=== PATIENT | male | born 1945 | race Caucasian/White ===

== ENCOUNTER 2023-10-24 06:14 | Observation (INO) ==
--- NOTE | 2023-09-12 13:04 | PAT Medication Instructions ---
Medication Instructions Date of Service September 12, 2023 Home Medications colchicine 0.6 mg capsule 0.6 mg PO DAILY enzalutamide 40 mg capsule (Xtandi) 160 mg PO DAILY furosemide 40 mg tablet 40 mg PO DAILY PRN Edema gabapentin 100 mg capsule 100 mg PO TID potassium 99 mg tablet 99 mg PO DAILY tamsulosin 0.4 mg capsule 0.8 mg PO DAILY warfarin 5 mg tablet 5 mg PO UD ASK your prescriber and surgeon enzalutamide 40 mg capsule (Xtandi) 160 mg PO DAILY warfarin 5 mg tablet 5 mg PO UD STOP taking 48 hours before surgery colchicine 0.6 mg capsule 0.6 mg PO DAILY DO NOT take the morning of surgery furosemide 40 mg tablet 40 mg PO DAILY PRN Edema potassium 99 mg tablet 99 mg PO DAILY Take morning of surgery With a small sip of water, OTHERWISE NOTHING TO EAT OR DRINK AFTER MIDNIGHT: gabapentin 100 mg capsule 100 mg PO TID tamsulosin 0.4 mg capsule 0.8 mg PO DAILY Take evening before surgery furosemide 40 mg tablet 40 mg PO DAILY PRN Edema (if needed) gabapentin 100 mg capsule 100 mg PO TID Other Notes If you have any questions please call us at [phone] or [phone] or [phone] or [phone]
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
[2023-10-24] MEDS ORDERED: ROPIVACAINE 0.5% 5 MG/ML 30 ML VIAL ONE (06:30)
[2023-10-24] MEDS ORDERED: BUPIVACAINE 0.5 % 5 MG/1 ML PF 10ML VIAL ONE (06:30)
[2023-10-24] MEDS ORDERED: LIDOCAINE 2% 2 ML VIAL/AMP(20MG/ML) INFIL ONE (07:24)
[2023-10-24] MEDS ORDERED: MIDAZOLAM HCL 1 MG/ML 2ML VIAL ONE (07:24)
[2023-10-24] MEDS ORDERED: fentaNYL citrate PF 100 MCG/2 ML VIAL ONE (07:24)
[2023-10-24] MEDS ORDERED: PROPOFOL IV EMULSION 10 MG/ML 20 ML VIAL IV ONE ×3 (07:24→10:10)
[2023-10-24 07:56] LABS: Partial Thromboplastin Time 27 Seconds (21-31); Prothrombin Time 10.9 Seconds (9.0-12.0)
--- NOTE | 2023-10-24 08:04 | History & Physical Bridge Note ---
Date of Service October 24, 2023 History & Physical Bridge Note I have examined the patient, reviewed the History & Physical and in the interval since the performance of the History & Physical I have noted the following changes of clinical significance: no changes noted
[2023-10-24] MEDS: METOCLOPRAMIDE HCL 10 MG TABLET PO SCH (08:05)
[2023-10-24] MEDS: GABAPENTIN 300 MG CAP PO SCH (08:05)
[2023-10-24] MEDS: CeleBREX 200 MG CAP PO SCH (08:05)
[2023-10-24] MEDS: ACETAMINOPHEN 500 MG TAB PO SCH ×2 (08:05→13:41)
[2023-10-24] MEDS: oxyCODONE HCL 10 MG TABCR (OxyCONTIN) PO SCH (08:05)
[2023-10-24] MEDS: FAMOTIDINE 20 MG TAB PO SCH (08:05)
[2023-10-24] MEDS: LR 60ML/HR IV SCH (08:09)
[2023-10-24] MEDS: LR 500ML BOLUS, THEN 15ML/HR IV SCH (08:23)
[2023-10-24] MEDS: dexAMETHasone**PF** 10 MG/ML VIAL IV SCH (08:26)
[2023-10-24] MEDS ORDERED: ePHEDrine sulfate 50 MG/ML AMP IV PRN (08:33)
[2023-10-24] MEDS ORDERED: ATROPINE SULFATE 0.1 MG/ML 10ML SYR IV PRN (08:33)
[2023-10-24] MEDS ORDERED: ONDANSETRON INJ 2 MG/ML 2 ML VIAL IV PRN ×2 (08:33→13:13)
[2023-10-24] MEDS ORDERED: fentaNYL citrate PF 100 MCG/2 ML VIAL IV PRN (08:33)
[2023-10-24] MEDS: TRANEXAMIC ACID 1,000 MG **IV Pre-op IV SCH (08:37)
[2023-10-24] MEDS: ceFAZolin 2000MG 2,000 MG/15 ML SYR IV SCH ×2 (08:55→17:01)
[2023-10-24] MEDS: ROPIV 0.5% 246mg, Ketorolac 30mg, EPINEPHrine 0.5mg in NSS INFIL SCH (09:33)
[2023-10-24] MEDS: ORTHO JOINT ANESTHETIC ONE (09:33)
[2023-10-24] MEDS: TRANEXAMIC ACID 1,000 MG **IV Intra-op IV SCH (09:59)
--- NOTE | 2023-10-24 10:01 | Operative Report ---
Post Operative Report Pre & Post Diagnosis Operation Date: 10/24/23 08:40 Pre-Op Diagnosis: Left Knee Osteoarthritis Post-Op Diagnosis: Left Knee Osteoarthritis I identified the patient and participated in the time-out.: Yes Procedure Operation Date: 10/24/23 08:40 Actual Procedures p Left Total Knee Arthroplasty(Left)Utilizing [facility] patient- matched total knee arthroplasty size femur 6 tibia 5 poly 13 patella 35 jonathan - Beka Samson DO Surgeon Beka Samson DO Computer Processing Scheduler Kimani PUTNAM Estimated Blood Loss 5 Findings Consistent with Post-Op Diagnosis Patient presents with ongoing complaints of pain about the left knee with severe end-stage tricompartmental DJD eburnated [id number] moderate marginal osteophytes subchondral sclerosis with a marginal osteophytes subchondral s clerotic lesions and eburnated bone with moderate to large effusion Specimens Bone and cartilage Drains Medium bore Hemovac Anesthesia Type MAC Spinal Regional Complications none Disposition Accompanied Patient To Recovery: No Disposition: Recovery Room Indications Patient presents with severe end-stage tricompartmental DJD left knee after failed attempted conservative management occluding physical therapy anti- inflammatories relative rest activity modification corticosteroid injection viscosupplementation above intraoperative findings were noted Description of Procedure After proper prepping and draping of the left lower extremity anterior midline incision was made over the region of the extensor extensor mechanism after meticulous hemostasis was obtained and maintained in subcutaneous tissues a medial parapatellar incision was made The patella was subluxed lateralward the medial lateral gutter were cleaned from any hypertrophic synovitis and scar tissue of the distal femoral block was placed and the distal femoral osteotomy cut was made subsequently the chamfers anterior and posterior osteotomy cuts were made utilizing the 4-in-1 block the tibia was subsequently subluxed anteriorward medial and ateral meniscal remnants were excised in their entirety remnants of the anterior and posterior cruciate ligaments were excised in their entirety excellent exposure of the proximal tibia was obtained the tibial osteotomy guide was placed on the proximal tibial osteotomy cut was made once again the knee was irrigated with copious amounts of sterile saline solution the patella was subsequently everted lateralward thickened scar tissue around the patella was removed the patella was subsequently cut utilizing a freehand technique and was drilled prepared for final preparation and placement of patella socially flexion-extension gaps were checked and the equal and symmetric trials were placed to the appropriate femoral and tibial trials with poly-spacer being placed for equal flexion and extension gaps and full range of motion including extension to 0 and flexion to 140 the trial components after having been taken to recovery range of motion was subsequently removed meticulous hemostasis was obtained and maintained subsequently a knee block injection of joint cocktail including ropivacaine 0.5% 150 mg. Bupivacaine 0.5% epinephrine 1-200,030 mL's toradol 30 mg dexamethasone 4 mg ketamine 10 mg clonidine 100 micrograms normal saline solution 30 mg was infiltrated into the soft tissues of the posterior knee medial lateral gutters and periosteal synovium special attention was paid to protect neurovascular structures at all times subsequently trial components having been removed the knee was irrigated with sterile saline solution. debris was removed the proximal tibia was subsequently prepared and was made ready for the placement of the tibial component tibial component was also cemented and tamped into position the femoral component was subsequently placed and cemented in the position the patellar component was subsequently cemented in position because hemostasis once again obtained and maintained wound having been thoroughly irrigated with debridement and debridement lavage was performed as well as a medial parapatellar incision closed with #1 Vicryl in interrupted fashion subcutaneous was closed with #2 Vicryl skin was closed with skin clips. PA-C was necessary for prepping and drapping as well as wound closure of deep fascia Sub cutaneous tissue and skin and was necessary for the case. A sterile compressive dressing was placed patient was taken to recovery in stable condition of report dictated by Chapin I attest to the content of the Intraoperative Record and any orders documented therein. Any exceptions are noted below.Due to the complex nature of the procedure, the entire surgery was performed with the operational assistance ofINDY Pantoaj. The healthcare administrative assistant, under direct supervision, was involved in the actual performance of all aspects of the surgical procedure including hemostasis, tissue retraction and incision, instrument management, patient positioning, and wound closure. I attest to the content of the Intraoperative Record and any orders documented therein. Any exceptions are noted below.
--- NOTE | 2023-10-24 10:57 | XRay Report ---
TWO VIEWS LEFT KNEE CLINICAL HISTORY: Postoperative examination. FINDINGS: AP and crosstable lateral portable views of the left knee are obtained. A left knee arthrop lasty is in near anatomic alignment. There has been undersurface remodeling of the patella. No acute fracture is seen. There are expected postoperative changes around the knee including skin clips, a epps rgical drain, soft tissue edema, and subcutaneous gas. Advanced atherosclerotic plaque is noted in th e popliteal artery. IMPRESSION: Expected postoperative changes status post left knee arthroplasty. No acute fracture is s een. ACT 112: Negative or not required by law. Electronically signed by: Mike Portillo M.D. 10/24/2023 10:56 AM
--- NOTE | 2023-10-24 12:21 | Anesthesiology Progress Note ---
Date of Service October 24, 2023 Anesthesia Post Procedure Vital Signs Vital Signs: Temp Pulse Pulse Resp BP Pulse Ox O2 Del Method 10/24/23 12:00 97.7 F 70 19 133/65 99 Room Air 10/24/23 11:50 71 15 138/72 99 Room Air 10/24/23 11:40 70 20 154/81 H 98 Room Air 10/24/23 11:30 78 13 133/84 98 Room Air 10/24/23 11:20 71 18 128/62 100 Room Air 10/24/23 11:10 67 12 126/53 L 100 Room Air 10/24/23 11:00 71 10 L 127/57 L 100 Room Air 10/24/23 10:50 75 17 121/58 L 100 Room Air 10/24/23 10:40 78 12 124/62 99 Room Air 10/24/23 10:32 97.3 F L 83 12 114/54 L 99 Room Air 10/24/23 07:28 97.2 F L 71 20 170/86 H 99 Room Air Pain Intensity Left Knee: Pain Intensity: 7 Transfer of Care Handoff Completed per policy Notes Mental Status: alert / awake / arousable and participated in evaluation Patient Amnestic to Procedure: Yes Nausea / Vomiting: adequately controlled Pain: adequately controlled Airway Patency, RR, SpO2: stable & adequate BP & HR: stable & adequate Hydration State: stable & adequate Neuraxial Anesthesia: was administered and sensory block is resolving Anesthetic Complications: no major complications apparent and Pt Satisfied with anesthetic care
[2023-10-24] MEDS: SODIUM CHLORIDE 0.9% 1,000 ML IV SCH (12:40)
[2023-10-24] MEDS ORDERED: FUROSEMIDE 40 MG TAB PO PRN (13:13)
[2023-10-24] MEDS ORDERED: NALOXONE HCL 0.4 MG/1 ML VIAL/CARP IV PRN (13:13)
[2023-10-24] MEDS ORDERED: METOCLOPRAMIDE HCL INJ 5 MG/ML 2 ML VIAL IV PRN (13:13)
[2023-10-24] MEDS ORDERED: HYDROmorphone INJ 1 MG/ML SYRINGE IV PRN (13:13)
[2023-10-24] MEDS ORDERED: bisacodyL 10 MG SUPP PR PRN (13:13)
[2023-10-24] MEDS: ORTHO WARFARIN NOMOGRAM SCH (13:35)
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
[2023-10-24] MEDS ORDERED: TAMSULOSIN HCL 0.4 MG CAP PO PRN (14:16)
[2023-10-24] MEDS: WARFARIN SOD 5 MG TAB PO ONE (17:01)
[2023-10-24] MEDS: GABAPENTIN 100 MG CAP PO SCH (20:11)
[2023-10-24] MEDS: SENNA 8.6 MG TAB PO SCH (20:12)
[2023-10-24] MEDS: DOCUSATE SODIUM 100 MG CAP PO SCH (20:12)
[2023-10-25] MEDS: diphenhydrAMINE Capsule 25 MG CAP PO PRN (02:08)
[2023-10-25] MEDS: oxyCODONE HCL IR 5 MG TAB (IMMEDIATE RELEASE) PO PRN (04:59)
[2023-10-25 06:11] LABS: Hematocrit (blood only) 29.7 % (42.0-52.0); Hemoglobin 10.3 g/dl (14.0-18.0); Mean Corpuscular Hemoglobin 29.5 pg (25.0-34.0); Mean Corpuscular Hgb Conc 34.7 g/dL (32.0-36.0); Mean Corpuscular Volume 85.1 fL (80.0-100.0); Mean Platelet Volume 10.9 fL (9.4-12.4); Platelet Count 162 K/uL (130-400); RDW Coefficient of Variation 13.2 % (11.5-14.5); RDW Standard Deviation 40.8 fL (36.4-46.3); Red Blood Count 3.49 M/uL (4.70-6.10); White Blood Count 8.74 K/ul (4.8-10.8)
[2023-10-25 06:19] LABS: BUN Creatinine Ratio 19.3 (10-20); Calcium 8.8 mg/dl (8.6-10.3); Est GFR (Non-African American) 61.3 ml/min; Potassium 3.5 mmol/L (3.5-5.1)
--- NOTE | 2023-10-25 06:47 | Orthopedic Progress Note ---
Date of Service October 25, 2023 Assessment & Plan (1) History of total left knee replacement: Plan: POD #1 s/p Left TKA pt/ot dvt proph with MT/SCD/ positive h/o blood clots, on Coumadin at home. this was stopped 5 days prior to sx and bridged with Lovenox. Coumadin has been restarted and using Lovenox for 5 days post op. this rx has been sent by his PCP prior to sx. plan for d/c home with HHPT Admission and Anticipated Discharge Date Admission Date: October 24, 2023 Subjective POD #1 s/p Left TKA Review of Systems Constitutional: no fever, no chills and no sweats Respiratory: no cough and no dyspnea Cardiovascular: no chest pain and no dyspnea Gastrointestinal: no abdominal pain, no nausea and no vomiting Physical Exam Physical Exam: Vital Signs Temp Pulse Pulse Resp BP BP Pulse Ox 10/25/23 03:47 36.6 C 66 18 154/73 H 97 10/24/23 23:17 36.4 C L 64 18 159/71 H 97 10/24/23 19:30 36.6 C 66 17 129/75 98 10/24/23 15:33 36.6 C 79 17 155/79 H 100 10/24/23 14:41 36.6 C 77 18 158/71 H 98 10/24/23 13:43 36.4 C L 67 18 162/66 H 100 10/24/23 13:13 36.3 C L 66 16 166/70 H 100 10/24/23 12:35 36.5 C 65 18 145/73 H 100 10/24/23 12:25 71 16 140/68 98 10/24/23 12:10 72 18 145/78 H 98 10/24/23 12:00 36.5 C 70 19 133/65 99 10/24/23 11:50 71 15 138/72 99 10/24/23 11:40 70 20 154/81 H 98 10/24/23 11:30 78 13 133/84 98 10/24/23 11:20 71 18 128/62 100 10/24/23 11:10 67 12 126/53 L 100 10/24/23 11:00 71 10 L 127/57 L 100 10/24/23 10:50 75 17 121/58 L 100 10/24/23 10:40 78 12 124/62 99 10/24/23 10:32 36.3 C L 83 12 114/54 L 99 10/24/23 07:28 36.2 C L 71 20 170/86 H 99 O2 Del Method 10/25/23 03:47 Room Air 10/24/23 23:17 Room Air 10/24/23 19:30 Room Air 10/24/23 15:33 Room Air 10/24/23 14:41 Room Air 10/24/23 13:43 Room Air 10/24/23 13:13 Room Air 10/24/23 12:35 Room Air 10/24/23 12:25 Room Air 10/24/23 12:10 Room Air 10/24/23 12:00 Room Air 10/24/23 11:50 Room Air 10/24/23 11:40 Room Air 10/24/23 11:30 Room Air 10/24/23 11:20 Room Air 10/24/23 11:10 Room Air 10/24/23 11:00 Room Air 10/24/23 10:50 Room Air 10/24/23 10:40 Room Air 10/24/23 10:32 Room Air 10/24/23 07:28 Room Air Intake and Output 10/24/23 10/24/23 10/25/23 14:59 22:59 06:59 Intake Total 3550 / 4345 795 / 4345 Output Total 150 / 2362 801 / 2362 1411 / 2362 Balance 3399 -1982 -1410 Intake: IV 200 / 995 795 / 995 Lactated Ringe r's 1,000 ml @ 15 0 / 0 mls/hr IV .Q24 H KIMBERLY Rx#: [id number] Sodium Chlorid e 0.9% 1,000 ml @ 795 / 795 100 mls/hr IV .Q10H KIMBERLY Rx#: [id number] Tranexamic Aci d / 0.7% NaCl 1, 200 / 200 000 mg In 100 ml @ 600 mls/hr IV TODAY@0600 KIMBERLY Rx#:[id number] IV Perioperative 2800 / 2800 Oral 550 / 550 Output: Urine 775 / 2055 1280 / 2055 Estimated Blood Loss Drain Output 140 / 295 25 / 295 130 / 295 Left Knee Hemo vac #1 140 / 295 25 / 295 130 / 295 # Bowel Movement s 1 / 2 1 / 2 Other: # Unmeasured Voi ds 1 Weight 83.1 kg Weight Measureme nt Method Standing Scale Patient Weight 10/25/23 06:59 Weight 83.1 kg Musculoskeletal: Left Leg: NVDI, calf SNT, negative ayad sign. DP palpable, able to wiggle toes/ankle movement without difficulty. dressing clean dry and intact. Results & Data Vital Signs (Past 12 Hours) Vital Signs Temp Pulse Resp BP Pulse Ox O2 Del Method 10/25/23 03:47 36.6 C 66 18 154/73 H 97 Room Air 10/24/23 23:17 36.4 C L 64 18 159/71 H 97 Room Air 10/24/23 19:30 36.6 C 66 17 129/75 98 Room Air Laboratory Results Laboratory Results WBC 8.74 K/ul (4.8-10.8) 10/25/23 05:16 RBC 3.49 M/uL (4.70-6.10) L 10/25/23 05:16 Hgb 10.3 g/dl (14.0-18.0) L 10/25/23 05:16 Hct 29.7 % (42.0-52.0) L 10/25/23 05:16 MCV 85.1 fL (80.0-100.0) 10/25/23 05:16 MCH 29.5 pg (25.0-34.0) 10/25/23 05:16 MCHC 34.7 g/dL (32.0-36.0) 10/25/23 05:16 RDW Std Deviation 40.8 fL (36.4-46.3) 10/25/23 05:16 RDW Coeff of Kathryn 13.2 % (11.5-14.5) 10/25/23 05:16 Plt Count 162 K/uL (130-400) 10/25/23 05:16 MPV 10.9 fL (9.4-12.4) 10/25/23 05:16 PT 11.0 Seconds (9.0-12.0) 10/25/23 05:15 INR 1.0 (0.9-1.1) 10/25/23 05:15 APTT 27 Seconds (21-31) 10/24/23 07:04 PTT Ratio 1.0 10/24/23 07:04 Sodium 133 mmol/L (136-145) L 10/25/23 05:15 Potassium 3.5 mmol/L (3.5-5.1) 10/25/23 05:15 Chloride 101 mmol/L (98-107) 10/25/23 05:15 Carbon Dioxide 26 mmol/L (21-32) 10/25/23 05:15 Anion Gap 6 (3-11) 10/25/23 05:15 BUN 22 mg/dl (6-23) 10/25/23 05:15 Creatinine 1.14 mg/dl (0.6-1.4) 10/25/23 05:15 Est Cr Clr Drug Dosing 53.0 ml/min 10/25/23 05:15 Est GFR ( Amer) 71.0 ml/min 10/25/23 05:15 Est GFR (Non-Af Amer) 61.3 ml/min 10/25/23 05:15 BUN/Creatinine Ratio 19.3 (10-20) 10/25/23 05:15 Glucose 93 mg/dl (70-99(Fasting)) 10/25/23 05:15 Calcium 8.8 mg/dl (8.6-10.3) 10/25/23 05:15 Impressions Knee X-Ray 10/24/23 10:36 TWO VIEWS LEFT KNEE CLINICAL HISTORY: Postoperative examination. FINDINGS: AP and crosstable lateral portable views of the left knee are obtained. A left knee arthroplasty is in near anatomic alignment. There has been undersurface remodeling of the patella. No acute fracture is seen. There are expected postoperative changes around the knee including skin clips, a surgical drain, soft tissue edema, and subcutaneous gas. Advanced atherosclerotic plaque is noted in the popliteal artery. IMPRESSION: Expected postoperative changes status post left knee arthroplasty. No acute fracture is seen. ACT 112: Negative or not required by law. Electronically signed by: Mike Portillo M.D. 10/24/2023 10:56 AM
--- NOTE | 2023-10-25 06:57 | Discharge Summary ---
Date of Service date of discharge: October 26, 2023 date of admission: 10-24-23 Admission HPI Per Admitting Provider Beka is a 78-year-old male who presented for preop evaluation prior to upcoming left total knee replacement. Has a longstanding history of left knee pain which gradually worsened that is now affecting his daily activities including walking standing using stairs. He does state he uses a cane or crutches for ambulation, he is limited in anti-inflammatories secondary to being on Coumadin. At this point time is failed conservative measures and wishes to proceed with a left total knee replacement Principal Diagnosis left knee arthritis Discharge Exam Vital Signs Temp Pulse Pulse Resp BP BP Pulse Ox 10/25/23 03:47 36.6 C 66 18 154/73 H 97 10/24/23 23:17 36.4 C L 64 18 159/71 H 97 10/24/23 19:30 36.6 C 66 17 129/75 98 10/24/23 15:33 36.6 C 79 17 155/79 H 100 10/24/23 14:41 36.6 C 77 18 158/71 H 98 10/24/23 13:43 36.4 C L 67 18 162/66 H 100 10/24/23 13:13 36.3 C L 66 16 166/70 H 100 10/24/23 12:35 36.5 C 65 18 145/73 H 100 10/24/23 12:25 71 16 140/68 98 10/24/23 12:10 72 18 145/78 H 98 10/24/23 12:00 36.5 C 70 19 133/65 99 10/24/23 11:50 71 15 138/72 99 10/24/23 11:40 70 20 154/81 H 98 10/24/23 11:30 78 13 133/84 98 10/24/23 11:20 71 18 128/62 100 10/24/23 11:10 67 12 126/53 L 100 10/24/23 11:00 71 10 L 127/57 L 100 10/24/23 10:50 75 17 121/58 L 100 10/24/23 10:40 78 12 124/62 99 10/24/23 10:32 36.3 C L 83 12 114/54 L 99 10/24/23 07:28 36.2 C L 71 20 170/86 H 99 O2 Del Method 10/25/23 03:47 Room Air 10/24/23 23:17 Room Air 10/24/23 19:30 Room Air 10/24/23 15:33 Room Air 10/24/23 14:41 Room Air 10/24/23 13:43 Room Air 10/24/23 13:13 Room Air 10/24/23 12:35 Room Air 10/24/23 12:25 Room Air 10/24/23 12:10 Room Air 10/24/23 12:00 Room Air 10/24/23 11:50 Room Air 10/24/23 11:40 Room Air 10/24/23 11:30 Room Air 10/24/23 11:20 Room Air 10/24/23 11:10 Room Air 10/24/23 11:00 Room Air 10/24/23 10:50 Room Air 10/24/23 10:40 Room Air 10/24/23 10:32 Room Air 10/24/23 07:28 Room Air Intake and Output 10/24/23 10/24/23 10/25/23 14:59 22:59 06:59 Intake Total 3550 / 4345 795 / 4345 Output Total 150 / 2362 801 / 2362 1411 / 2362 Balance 3399 / 1982 - / 1982 -1410 Intake: IV 200 / 995 795 / 995 Lactated Ringer's 1,000 ml @ 15 0 / 0 mls/hr IV .Q24H KIMBERLY Rx#: [id number] Sodium Chloride 0.9% 1,000 ml @ 795 / 795 100 mls/hr IV .Q10H KIMBERLY Rx#: [id number] Tranexamic Acid / 0.7% NaCl 1, 200 / 200 000 mg In 100 ml @ 600 mls/hr IV TODAY@0600 KIMBERLY Rx#:[id number] IV Perioperative 2800 / 2800 Oral 550 / 550 Output: Urine 775 / 2055 1280 / 2055 Estimated Blood Loss 10 / 10 Drain Output 140 / 295 25 / 295 130 / 295 Left Knee Hemovac #1 140 / 295 25 / 295 130 / 295 # Bowel Movements 1 / 2 1 / 2 Other: # Unmeasured Voids 1 Weight 83.1 kg Weight Measurement Method Standing Scale Patient Weight 10/25/23 06:59 Weight 83.1 kg Musculoskeletal left knee: NVDI, calf SNT, negative ayad sign. DP palpable, able to wiggle toes/ankle movement without difficulty. KATJA dressing clean dry and intact. Discharge Data Allergies Allergy/AdvReac Type Severity Reaction Status Date / Time No Known Allergies Allergy Verified 10/24/23 07:08 Consultations 10/24/23 13:13 Consult Hospitalist Routine Procedures Performed Operation Date: 10/24/23 08:40 Actual Procedures p Left Total Knee Arthroplasty(Left) - Beka Recio DO Ordered Studies 10/24/23 05:00 US - OR guided needle placemen Routine Hospital Course (1) History of total left knee replacement: POD #1 s/p Left TKA pt/ot dvt proph with MT/SCD/ positive h/o blood clots, on Coumadin at home. this was stopped 5 days prior to sx and bridged with Lovenox. Coumadin has been restarted and using Lovenox for 5 days post op. this rx has been sent by his PCP prior to sx. plan for d/c home with HHPT Total Time Total Time Spent Total Time Spent (In Minutes): 20 Discharge Plan Discharge Items Patient Disposition: Home - Home Health Services Reason For Visit: Left Knee Osteoarthritis Discharge Diagnosis: LEFT TOTAL KNEE REPLACEMENT Activity: Per Instructions section Weightbearing Comment: WBAT WITH WALKER Non-emergency contact: Surgeon Call non-emergency contact if: you have any medication questions, your temperature is above 101, your wound has increased redness, your wound has increased drainage and your wound pain has increased Follow-up/Referrals: Judson Ramírez MD [Primary Care Provider] - Diet: Regular Addtl Attending Provider Instructions: ACTIVITY RECOMMENDATIONS: SELF CARE INSTRUCTIONS AFTER TOTAL KNEE REPLACEMENT A. You may need to continue a physical therapy program after discharge from the hospital. There are several options available to you. Your doctor will assist you in selecting the best one for you. 1. An out-patient facility 2 to 3 times a week for therapy or home therapy. 2. Continue working on all exercises taught to you in the hospital. Your goals should be to increase bending of your knee to 90 degrees and beyond and to fully straighten your knee. B. You may progress at your own pace from walking with a walker or crutches to a cane; then to no assistive devices. C. Make walking a part of your daily routine. Be up as much as comfortable with rest periods throughout the day. Rest with leg elevation is very important. Use the ice wrap frequently for the first 3-4 weeks. D. There are no restrictions on activities. You may ride in a car, shop, participate in brand sales consultant and all social activities. E. Wear the long elastic stockings (MT hose) 20 hours a day for 2 weeks after surgery. They can be removed several times a day for laundering and for a bath. F. You may shower, no tub baths until cleared by your doctor. SPECIAL CARE INSTRUCTIONS: VERY IMPORTANT TO READ AND REVIEW A. There are a few signs you need to watch for after you are home. Call [facility] if you notice any of the followin. Increased severe knee pain. Some pain is expected especially when you exercise. 2. Increased swelling in your leg or knee; pain or swelling of the calf muscle in either lower leg. 3. Any fluid drainage from the incision. 4. Shortness of breath or chest pain. B. Please call [facility] at if you have any concerns or questions about your operation or recovery. The doctor or his nurse will return your call promptly. C. You must take antibiotics before dental work, bladder, bowel or other surgery. Your doctor will provide you with a permanent care to carry describing this precaution. IMPORTANT: * Resume your coumadin as outlined by your PCP. You will bridge with Lovenox for the first 5 days post op using the medication sent to your pharmacy by your PCP. * CALL IF INCREASED PAIN, REDNESS, DRAINAGE OR FEVER GREATER THAT 101. * WEAR MT HOSE 20 HOURS PER DAY FOR 2 WEEKS. .KATJA Dressing- This is a large suction dressing covering your incision. This will help pull any excess drainage from the wound and allow your incision to heal properly. You may shower with this if you can keep the unit outside of the shower. If any bleeding or leakage is noted please call your doctor's office. This will remain on your incision for 7 days and then should be removed. This can be done yourself or by the home nursing staff if applicable. The entire unit is disposable once removed. Once removed, keep incision clean and dry. If redness or drainage is noted, please call your surgeon. FOLLOW UP VISIT: If appointment is not already scheduled: Please call [facility] to make a follow-up appointment for 2 weeks after your surgery at . Pending Studies at Discharge: No Stand-Alone Forms: [facility] Medications and DC Order Prescriptions: New acetaminophen 500 mg tablet 1,000 mg PO Q8 21 Days Qty: 126 0RF cefadroxil 500 mg capsule 500 mg PO BID 14 Days Qty: 28 0RF docusate sodium 100 mg Capsule 100 mg PO BID Qty: 20 0RF oxycodone 5 mg tablet 5 - 10 mg PO Q6H PRN (Reason: pain) Qty: 30 0RF Rx Instructions: ongoing therapy, supervising dr neda recio. max 6 tabs in 24 hours Continued furosemide 40 mg Tablet 40 mg PO DAILY PRN (Reason: Edema) potassium 99 mg Tablet 99 mg PO DAILY tamsulosin 0.4 mg Capsule 0.8 mg PO DAILY warfarin 5 mg Tablet 5 mg PO UD Rx Instructions: 7.5mg every day except sunday, sunday takes 10mg gabapentin 100 mg Capsule 100 mg PO HS Xtandi 40 mg Capsule 160 mg PO DAILY colchicine [Mitigare] 0.6 mg Capsule 0.6 mg PO DAILY enoxaparin [Lovenox] 40 mg/0.4 mL Syringe 40 mg SUBCUT Q12H Admission Data Admit Date/Time: 10/24/23 10:36 Attending Provider: Beka Recio Admit Provider: Beka Recio Primary Care Provider: Judson Ramírez V.
[2023-10-25] MEDS: POTASSIUM CHLORIDE 10 MEQ TABCR PO SCH (08:02)
[2023-10-25] MEDS: MULTIVITAMIN TAB PO SCH (08:02)
[2023-10-25] MEDS ORDERED: TAMSULOSIN HCL 0.4 MG CAP PO SCH (09:00)
[2023-10-25] MEDS ORDERED: COLCHICINE 0.6 MG TAB PO SCH (09:00)
--- NOTE | 2023-10-25 11:27 | Hospitalist Progress Note ---
Date of Service October 25, 2023 Assessment & Plan (1) Arthritis of knee, left: Plan: S/p left total knee arthroplasty on 10/24/[address] Samson. Estimated 5 cc blood loss, no reported complications Neurovascularly intact postoperatively - Acute blood loss anemia secondary to surgery. Patient is hemodynamically stable. No blood transfusion required at this time. Activity recommendations, pain control, VTE ppx, and discharge planning per primary team (2) Prostate cancer: Plan: Prostate cancer with LUTS Continue Xtandi. Patient is on leuprolide every 3 month injections Continue Flomax 0.8 mg daily Bladder scan every shift for retention. 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 Continue Lovenox 40 mg twice daily. Patient has been ordered 40 mg every 12 rather than 1 mg/kg every 12 to minimize risk of bleeding. Continue bridge until INR within goal of 23. -- INR 1.0 on 10/25/23. (4) Gout: Plan: Continue allopurinol Plan Patient is stable for DC from hospital medicine's perspective. We will sign off at this time. Please contact with any further questions or concerns. DVT prophylaxis: Lovenox/warfarin as noted above CODE STATUS: Full code Admission and Anticipated Discharge Date Admission Date: October 24, 2023 Subjective Patient seen and evaluated at bedside. He reports that he is tired because he did not sleep well last night. He states his left knee was causing him pain earlier this morning, but was relieved with pain medication. Patient denies any shortness of breath, chest pain, difficulty urinating, dizziness, or lightheadedness. He denies any complaints at this time. Ortho was planning on discharging the patient today, however, he requested to stay in the hospital tonight for further monitoring. He reports that he had a complicated postop recovery from back surgery in April. Patient is stable for discharge from hospital medicine's perspective. We will sign off at this time. Physical Exam Physical Exam: General: No acute distress, nondiaphoretic, well-developed, well-nourished. Skin: The skin was without rashes, erythema, edema, or bruising. Cardiac: Regular rate and rhythm without murmurs gallops or rubs. Pulm: Clear to auscultation bilaterally without wheezes, rales or rhonchi. No retractions or accessory muscle use. Abdominal: Positive bowel sounds x 4. Soft, nontender, without masses or organomegaly. Neuro: A&O x3. No focal neurological deficits. Extremities: LLE dressing clean dry intact. Sensation LE intact bilaterally. Able to wiggle toes bilaterally. Results & Data Results & Data Vital Signs (Past 12 Hours) Vital Signs Temp Pulse Resp BP Pulse Ox O2 Del Method 10/25/23 07:17 36.4 C L 65 16 154/70 H 99 Room Air 10/25/23 03:47 36.6 C 66 18 154/73 H 97 Room Air Laboratory Results Reviewed CBC Reviewed coags Reviewed BMP PG Care Time/CCT Total # of Minutes Spent Total Time Spent with Patient: Total time spent is greater than 50% in coordination of care (as documented) at patient's floor/unit and/or counseling patient: Coding Level of Care Code 53641 SUB INP/OBS CARE 2/35MIN Diagnoses Arthritis of knee, left M17.12 Prostate cancer C61 Hx of blood clots Z86.718 Gout M10.9
[2023-10-25] MEDS: ENOXAPARIN INJ 40 MG/0.4 ML SYR SQ SCH (13:27)
[2023-10-25] MEDS: WARFARIN SOD 5 MG TAB PO ONE (16:54)
--- NOTE | 2023-10-26 06:05 | Orthopedic Progress Note ---
Date of Service October 26, 2023 Assessment & Plan (1) History of total left knee replacement: Plan: POD #2 s/p Left TKA pt/ot dvt proph with MT/SCD/ positive h/o blood clots, on Coumadin at home. this was stopped 5 days prior to sx and bridged with Lovenox. Coumadin has been restarted and using Lovenox for 5 days post op. this rx has been sent by his PCP prior to sx. plan for d/c home with HHPT after PT today Admission and Anticipated Discharge Date Admission Date: October 24, 2023 Subjective POD #2 s/p Left TKA Physical Exam Physical Exam: Vital Signs Temp 36.5 C 10/25/23 20:27 Pulse 73 10/25/23 20:27 Resp 16 10/25/23 20:27 BP 169/79 H 10/25/23 20:27 Pulse Ox 98 10/25/23 20:27 O2 Del Method Room Air 10/25/23 20:27 Intake & Output 10/25/23 10/25/23 10/26/23 06:59 18:59 06:59 Intake Total 795 / 4345 Output Total 1712 / 2362 1055 / 3005 1950 / 3005 Balance -7 / 1982 -1055 / -3005 -1950 / -3005 Intake: IV 795 / 995 Sodium Chlorid e 0.9% 1,000 ml @ 795 / 795 100 mls/hr IV .Q10H KIMBERLY Rx#: [id number] Output: Urine 1580 / 2055 1005 / 2905 1900 / 2905 Drain Output 130 / 295 50 / 100 50 / 100 Left Knee Hemo vac #1 130 / 295 50 / 100 50 / 100 # Bowel Movement s 2 / 2 Other: # Unmeasured Voi ds 1 Musculoskeletal: Left Leg: NVDI, calf SNT, negative ayad sign. DP palpable, able to wiggle toes/ankle movement without difficulty. dressing clean dry and intact. Results & Data Vital Signs (Past 12 Hours) Vital Signs Temp Pulse Resp BP Pulse Ox O2 Del Method 10/25/23 20:27 36.5 C 73 16 169/79 H 98 Room Air Laboratory Results Laboratory Results WBC 8.74 K/ul (4.8-10.8) 10/25/23 05:16 RBC 3.49 M/uL (4.70-6.10) L 10/25/23 05:16 Hgb 10.3 g/dl (14.0-18.0) L 10/25/23 05:16 Hct 29.7 % (42.0-52.0) L 10/25/23 05:16 MCV 85.1 fL (80.0-100.0) 10/25/23 05:16 MCH 29.5 pg (25.0-34.0) 10/25/23 05:16 MCHC 34.7 g/dL (32.0-36.0) 10/25/23 05:16 RDW Std Deviation 40.8 fL (36.4-46.3) 10/25/23 05:16 RDW Coeff of Kathryn 13.2 % (11.5-14.5) 10/25/23 05:16 Plt Count 162 K/uL (130-400) 10/25/23 05:16 MPV 10.9 fL (9.4-12.4) 10/25/23 05:16 PT 11.0 Seconds (9.0-12.0) 10/25/23 05:15 INR 1.0 (0.9-1.1) 10/25/23 05:15 APTT 27 Seconds (21-31) 10/24/23 07:04 PTT Ratio 1.0 10/24/23 07:04 Sodium 133 mmol/L (136-145) L 10/25/23 05:15 Potassium 3.5 mmol/L (3.5-5.1) 10/25/23 05:15 Chloride 101 mmol/L (98-107) 10/25/23 05:15 Carbon Dioxide 26 mmol/L (21-32) 10/25/23 05:15 Anion Gap 6 (3-11) 10/25/23 05:15 BUN 22 mg/dl (6-23) 10/25/23 05:15 Creatinine 1.14 mg/dl (0.6-1.4) 10/25/23 05:15 Est Cr Clr Drug Dosing 53.0 ml/min 10/25/23 05:15 Est GFR ( Amer) 71.0 ml/min 10/25/23 05:15 Est GFR (Non-Af Amer) 61.3 ml/min 10/25/23 05:15 BUN/Creatinine Ratio 19.3 (10-20) 10/25/23 05:15 Glucose 93 mg/dl (70-99(Fasting)) 10/25/23 05:15 Calcium 8.8 mg/dl (8.6-10.3) 10/25/23 05:15 Impressions Knee X-Ray 10/24/23 10:36 TWO VIEWS LEFT KNEE CLINICAL HISTORY: Postoperative examination. FINDINGS: AP and crosstable lateral portable views of the left knee are obtained. A left knee arthroplasty is in near anatomic alignment. There has been undersurface remodeling of the patella. No acute fracture is seen. There are expected postoperative changes around the knee including skin clips, a surgical drain, soft tissue edema, and subcutaneous gas. Advanced atherosclerotic plaque is noted in the popliteal artery. IMPRESSION: Expected postoperative changes status post left knee arthroplasty. No acute fracture is seen. ACT 112: Negative or not required by law. Electronically signed by: Mike Portillo M.D. 10/24/2023 10:56 AM
[2023-10-26 07:47] LABS: INR 1.1 (0.9-1.1); Prothrombin Time 11.8 Seconds (9.0-12.0)
[2023-10-26] MEDS: MAGNESIUM HYDROXIDE SUSP 30 ML UDC PO PRN (12:42)
[2023-10-26] MEDS: WARFARIN SOD 6 MG TAB PO SCH (16:13)
[2023-10-27 06:32] LABS: INR 1.1 (0.9-1.1); Prothrombin Time 11.8 Seconds (9.0-12.0)
--- NOTE | 2023-10-27 08:24 | Orthopedic Progress Note ---
Date of Service October 27, 2023 Assessment & Plan (1) History of total left knee replacement: Plan: POD #3 s/p Left TKA pt/ot dvt proph with MT/SCD/ positive h/o blood clots, on Coumadin at home. this was stopped 5 days prior to sx and bridged with Lovenox. Coumadin has been restarted and using Lovenox for 5 days post op. this rx has been sent by his PCP prior to sx. d/c home with HHPT today Follow-up with Dr. Samson in orthopedic surgery clinic in 10-14 days. Please call [facility] at [phone] to make an appointment. Admission and Anticipated Discharge Date Admission Date: October 24, 2023 Subjective POD #3 s/p Left TKA. Patient did well over night. Notes some pain in the knee but controlled on current regimen. No acute complaints or concerns this morning, ready to go home today. Review of Systems Constitutional: no fever, no chills and no sweats Respiratory: no cough and no dyspnea Cardiovascular: no chest pain and no dyspnea Gastrointestinal: no abdominal pain, no nausea and no vomiting Musculoskeletal: as per Subjective / HPI Physical Exam Physical Exam: Resting in bed, no acute distress Musculoskeletal: LLE: KATJA dressing in place with some dried blood, otherwise intact. Mild edema about the knee, compartments soft and compressible. Calf soft and non-tender to palpation, negative ayad sign. Toes mobile, dorsi/plantarflexion intact. D/p pulse intact, NVI Results & Data Vital Signs (Past 12 Hours) Vital Signs Temp Pulse Resp BP Pulse Ox O2 Del Method 10/27/23 07:34 36.8 C 76 16 164/53 H 96 Room Air 10/26/23 23:39 36.6 C 79 17 152/86 H 95 Room Air Laboratory Results Left Leg: NVDI, calf SNT, negative ayad sign. DP palpable, able to wiggle toes/ankle movement without difficulty. dressing clean dry and intact. Diagnostic Findings TWO VIEWS LEFT KNEE CLINICAL HISTORY: Postoperative examination. FINDINGS: AP and crosstable lateral portable views of the left knee are obtained. A left knee arthroplasty is in near anatomic alignment. There has been undersurface remodeling of the patella. No acute fracture is seen. There are expected postoperative changes around the knee including skin clips, a surgical drain, soft tissue edema, and subcutaneous gas. Advanced atherosclerotic plaque is noted in the popliteal artery. IMPRESSION: Expected postoperative changes status post left knee arthroplasty. No acute fracture is seen.
== END 2023-10-27 11:53 | disposition home health service (06) ==
LOC: ASU 06:14 → 3E 06:14